=== PATIENT | female | born 1980 | race Caucasian/White ===

== ENCOUNTER 2017-11-14 10:28 | Emergency (ER) | payer MEDICARE ==
[2017-11-14] MEDS ORDERED: LORAZEPAM 1 MG TABLET PO ONE (10:51)
--- NOTE | 2017-11-14 10:55 | ER Document Report ---
ED Medical Screen (RME) - General Chief Complaint: Abdominal Pain Stated Complaint: NAUSEA, ABDOMINAL PAIN Time Seen by Provider: 11/14/17 10:51 Notes: 37 years old female who moved from [place] 1 week ago, multiple medical problems presents today with general malaise fatigue and nervous. Feeling nauseous no vomiting. Denies any diarrhea dysuria but had multiple frequencies. On examination she appears very nervous. Anxious. TRAVEL OUTSIDE OF THE [place] IN LAST 30 DAYS: No Past Medical History Renal/ Medical History: Denies: Hx Peritoneal Dialysis Physical Exam - Vital signs Vitals: Temp Pulse Resp BP Pulse Ox 97.7 F 71 16 136/99 H 98 11/14/17 10:38 11/14/17 10:38 11/14/17 10:38 11/14/17 10:38 11/14/17 10:38 Course - Vital Signs Vital signs: Temp Pulse Resp BP Pulse Ox 97.7 F 71 16 136/99 H 98 11/14/17 10:38 11/14/17 10:38 11/14/17 10:38 11/14/17 10:38 11/14/17 10:38
[2017-11-14 11:45] LABS: ABSOLUTE BASOPHILS # (AUTO) 0.1 10^3/uL (0.0-0.2); ABSOLUTE EOSINOPHILS # (AUTO) 0.1 10^3/uL (0.0-0.6); ABSOLUTE LYMPHOCYTES (AUTO) 2.6 10^3/uL (0.5-4.7); ABSOLUTE MONOCYTES (AUTO) 0.4 10^3/uL (0.1-1.4); ABSOLUTE NEUT (AUTO) 4.7 10^3/uL (1.7-8.2); BASOPHILS % (AUTO) 0.8 % (0-2); EOSINOPHILS % (AUTO) 0.9 % (0-6); HEMATOCRIT 42.9 % (36.0-47.0); HEMOGLOBIN 14.4 g/dL (12.0-15.5); LYMPHOCYTES % (AUTO) 33.1 % (13-45); MEAN CORPUSCULAR HEMOGLOBIN 28.4 pg (27.0-33.4); MEAN CORPUSCULAR HGB CONC 33.4 g/dL (32.0-36.0); MEAN CORPUSCULAR VOLUME 85 fl (80-97); MONOCYTES % (AUTO) 4.8 % (3-13); PLATELET COUNT 264 10^3/uL (150-450); RED BLOOD COUNT 5.05 10^6/uL (3.72-5.28); RED CELL DISTRIBUTION WIDTH 13.1 % (11.5-14.0); SEGMENTED NEUTROPHILS % (AUTO) 60.4 % (42-78); TOTAL CELLS COUNTED % (AUTO) 100 %; WHITE BLOOD COUNT 7.7 10^3/uL (4.0-10.5)
[2017-11-14 12:10] LABS: ALANINE AMINOTRANSFERASE 26 U/L (9-52); ALBUMIN 3.8 g/dL (3.5-5.0); ALKALINE PHOSPHATASE 53 U/L (38-126); ANION GAP 11 (5-19); ASPARTATE AMINO TRANSFERASE 23 U/L (14-36); BILIRUBIN,DIRECT 0.2 mg/dL (0.0-0.4); BILIRUBIN,TOTAL 0.4 mg/dL (0.2-1.3); BLOOD UREA NITROGEN 10 mg/dL (7-20); CALCIUM 9.2 mg/dL (8.4-10.2); CARBON DIOXIDE 26 mmol/L (22-30); CHLORIDE 107 mmol/L (98-107); GLUCOSE 90 mg/dL (75-110); POTASSIUM 4.4 mmol/L (3.6-5.0); SODIUM 144.3 mmol/L (137-145); TOTAL PROTEIN 6.9 g/dL (6.3-8.2)
[2017-11-14 12:12] LABS: APPEARANCE,URINE SLIGHTLY-CLOUDY; BILIRUBIN,URINE NEGATIVE (NEGATIVE); GLUCOSE, URINE NEGATIVE (NEGATIVE); KETONES,URINE NEGATIVE (NEGATIVE); LEUKOCYTE ESTERASE,URINE LARGE (NEGATIVE); NITRITE,URINE NEGATIVE (NEGATIVE); PROTEIN,URINE NEGATIVE (NEGATIVE); URINE SPECIFIC GRAVITY 1.024; UROBILINOGEN,URINE NEGATIVE mg/dL (<2.0)
--- NOTE | 2017-11-14 12:13 | ER Document Report ---
ED General - General Chief Complaint: Abdominal Pain Stated Complaint: NAUSEA, ABDOMINAL PAIN Time Seen by Provider: 11/14/17 10:51 Mode of Arrival: Ambulatory Information source: Patient Notes: Patient presents complaining of fatigue and not feeling well for the past week since relocating here from [place]. Patient states that she feels as though the heat is getting to her. Patient does complain of nausea but denies any vomiting or diarrhea. Patient does report some dysuria as well as frequency. Patient states she has had night sweats for the past 2 months. Patient denies any cough or cold symptoms. Patient denies any chest pain. Patient denies any pain complaints. TRAVEL OUTSIDE OF THE [place] IN LAST 30 DAYS: No - HPI Onset: Other - Night sweats 2 months, fatigue 1 week Onset/Duration: Persistent Quality of pain: No pain Pain Level: Denies Associated symptoms: Nausea, Other - Fatigue, urinary symptoms. denies: Chest pain, Nonproductive cough, Productive cough, Diarrhea, Fever, Vomiting Exacerbated by: Denies Relieved by: Denies Similar symptoms previously: No Recently seen / treated by doctor: No - Related Data Allergies/Adverse Reactions: divalproex sodium [From Depakote] Allergy (Verified 11/14/17 12:17) latex Allergy (Verified 11/14/17 12:17) Past Medical History - General Information source: Patient - Social History Smoking Status: Never Smoker Chew tobacco use (# tins/day): No Frequency of alcohol use: None Drug Abuse: None Occupation: None Lives with: Family Family History: Reviewed & Not Pertinent Patient has suicidal ideation: No Patient has homicidal ideation: No - Past Medical History Cardiac Medical History: Reports: Hx Hypertension Pulmonary Medical History: Reports: Hx Asthma Renal/ Medical History: Denies: Hx Peritoneal Dialysis GI Medical History: Reports: Hx Gastroesophageal Reflux Disease Psychiatric Medical History: Reports: Hx Anxiety, Hx Post Traumatic Stress Disorder, Other - Spastic dysphonia, essential tremor Past Surgical History: Reports: Hx Cholecystectomy Review of Systems - Review of Systems Constitutional: Diaphoresis - At nighttime, Malaise. denies: Chills, Fever, Weakness, Recent illness EENT: No symptoms reported Cardiovascular: No symptoms reported. denies: Chest pain, Dizziness Respiratory: No symptoms reported. denies: Cough, Short of breath Gastrointestinal: Nausea. denies: Abdominal pain, Diarrhea, Vomiting Genitourinary: Dysuria, Frequency Female Genitourinary: No symptoms reported. denies: Musculoskeletal: No symptoms reported. denies: Back pain Skin: No symptoms reported Hematologic/Lymphatic: No symptoms reported Neurological/Psychological: Tremor Physical Exam - Vital signs Vitals: Temp Pulse Resp BP Pulse Ox 97.7 F 71 16 136/99 H 98 11/14/17 10:38 11/14/17 10:38 11/14/17 10:38 11/14/17 10:38 11/14/17 10:38 - General General appearance: Appears well, Alert, Anxious In distress: None Notes: Patient with essential tremor and dysphonia when speaking - HEENT Head: Normocephalic, Atraumatic Eyes: Normal Conjunctiva: Normal Nasal: Normal Mouth/Lips: Normal Pharynx: Normal Neck: Normal, Supple. No: Lymphadenopathy - Respiratory Respiratory status: No respiratory distress Chest status: Nontender Breath sounds: Normal. No: Rales, Rhonchi, Stridor, Wheezing Chest palpation: Normal - Cardiovascular Rhythm: Regular Heart sounds: S1 appreciated, S2 appreciated Murmur: No - Back Back: Normal, Nontender. No: CVA tenderness - Extremities General upper extremity: Normal inspection, Nontender, Normal strength General lower extremity: Normal inspection, Nontender, Normal strength - Neurological Neuro grossly intact: Yes Cognition: Normal Palmer Coma Scale Eye Opening: Spontaneous Palmer Coma Scale Verbal: Oriented Apex Coma Scale Motor: Obeys Commands Apex Coma Scale Total: 15 - Psychological Associated symptoms: Anxious - Skin Skin Temperature: Warm Skin Moisture: Dry Skin Color: Normal Course - Re-evaluation Re-evalutation: 11/14/17 12:[address] Crisostomo regarding patient presentation and diagnostic evaluation, patient without any risk factors for TB. Advises basic labs including blood culture and urinalysis. 11/14/17 14:28 She complains of some nausea, additional medication ordered. Discussed results of patient's diagnostic tests with her. Patient encouraged to follow-up with her primary doctor for recheck. Will treat patient's UTI. No concern for pyelonephritis. Patient without fever or leukocytosis. Patient does endorse dysuria as well as frequency. - Vital Signs Vital signs: Temp Pulse Resp BP Pulse Ox 98.2 F 74 14 130/75 H 100 11/14/17 14:33 11/14/17 14:33 11/14/17 14:33 11/14/17 14:33 11/14/17 14:33 - Laboratory Result Diagrams: 11/14/17 11:08 11/14/17 11:08 Laboratory results interpreted by me: 11/14/17 11:08 Ur Leukocyte Esterase LARGE H Urine Ascorbic Acid 40 H Labs- Entire Visit 11/14/17 11/14/17 11/14/17 11:08 11:08 11:08 WBC 7.7 RBC 5.05 Hgb 14.4 Hct 42.9 MCV 85 MCH 28.4 MCHC 33.4 RDW 13.1 Plt Count 264 Seg Neutrophils % 60.4 Lymphocytes % 33.1 Monocytes % 4.8 Eosinophils % 0.9 Basophils % 0.8 Absolute Neutrophils 4.7 Absolute Lymphocytes 2.6 Absolute Monocytes 0.4 Absolute Eosinophils 0.1 Absolute Basophils 0.1 Sodium 144.3 Potassium 4.4 Chloride 107 Carbon Dioxide 26 Anion Gap 11 BUN 10 Creatinine 1.01 Est GFR ( Amer) > 60 Est GFR (Non-Af Amer) > 60 Glucose 90 Calcium 9.2 Total Bilirubin 0.4 Direct Bilirubin 0.2 Neonat Total Bilirubin Not Reportable Neonat Direct Bilirubin Not Reportable Neonat Indirect Bili Not Reportable AST 23 ALT 26 Alkaline Phosphatase 53 Total Protein 6.9 Albumin 3.8 TSH Urine Color YELLOW Urine Appearance SLIGHTLY-CLOUDY Urine pH 6.0 Ur Specific [place] 1.024 Urine Protein NEGATIVE Urine Glucose (UA) NEGATIVE Urine Ketones NEGATIVE Urine Blood NEGATIVE Urine Nitrite NEGATIVE Urine Bilirubin NEGATIVE Urine Urobilinogen NEGATIVE Ur Leukocyte Esterase LARGE H Urine WBC (Auto) 28 Urine RBC (Auto) 4 Urine Bacteria (Auto) 3+ Squamous Epi Cells Auto 25 Urine Mucus (Auto) MOD Urine Ascorbic Acid 40 H 11/14/17 11:08 WBC RBC Hgb Hct MCV MCH MCHC RDW Plt Count Seg Neutrophils % Lymphocytes % Monocytes % Eosinophils % Basophils % Absolute Neutrophils Absolute Lymphocytes Absolute Monocytes Absolute Eosinophils Absolute Basophils Sodium Potassium Chloride Carbon Dioxide Anion Gap BUN Creatinine Est GFR ( Amer) Est GFR (Non-Af Amer) Glucose Calcium Total Bilirubin Direct Bilirubin Neonat Total Bilirubin Neonat Direct Bilirubin Neonat Indirect Bili AST ALT Alkaline Phosphatase Total Protein Albumin TSH 1.97 Urine Color Urine Appearance Urine pH Ur Specific [place] Urine Protein Urine Glucose (UA) Urine Ketones Urine Blood Urine Nitrite Urine Bilirubin Urine Urobilinogen Ur Leukocyte Esterase Urine WBC (Auto) Urine RBC (Auto) Urine Bacteria (Auto) Squamous Epi Cells Auto Urine Mucus (Auto) Urine Ascorbic Acid Discharge - Discharge Clinical Impression: Nausea Fatigue Qualifiers: Fatigue type: unspecified Qualified Code(s): R53.83 - Other fatigue UTI (urinary tract infection) Qualifiers: Urinary tract infection type: site unspecified Hematuria presence: without hematuria Qualified Code(s): N39.0 - Urinary tract infection, site not specified Condition: Good Disposition: HOME, SELF-CARE Instructions: Cephalexin ([facility]), Fatigue ([facility]), Nausea or Vomiting, Nonspecific ([facility]), Urinary Anesthetic Agent ([facility]), Urinary Tract Infection ([facility]) Additional Instructions: Return immediately for any new or worsening symptoms Followup with your primary care provider, call tomorrow to make a followup appointment Urine culture is pending, we will call if you need any different treatment Prescriptions: Cephalexin Monohydrate [Keflex 500 mg Capsule] 500 mg PO Q6H 7 Days capsule Ondansetron HCl [Zofran 4 mg Tablet] 1 - 2 tab PO Q6 PRN #15 tablet PRN Reason: Phenazopyridine HCl [Pyridium 200 mg Tablet] 200 mg PO TID #15 tablet Referrals: RUBI VINCENT MD [ACTIVE STAFF] - 11/17/17
[2017-11-14 12:14] LABS: COLOR,URINE YELLOW
[2017-11-14] MEDS ORDERED: CEPHALEXIN 500 MG CAPSULE PO ONE (14:28)
[2017-11-14] MEDS ORDERED: ONDANSETRON 4 MG TAB.RAPDIS PO ONE (14:28)
[2017-11-14 14:53] VITALS: BP 130/75
== END 2017-11-14 14:31 | disposition home or self-care (01) ==
LOC: ER 10:28
DX: N39.0 Urinary tract infection, site not specified (principal); R53.83 Other fatigue; R11.0 Nausea; R30.0 Dysuria; G25.0 Essential tremor; R49.0 Dysphonia; R35.0 Frequency of micturition; R61 Generalized hyperhidrosis; J45.909 Unspecified asthma, uncomplicated; I10 Essential (primary) hypertension; R53.81 Other malaise; Z88.8 Allergy status to other drugs, medicaments and biological substances; Z91.040 Latex allergy status
CPT/HCPCS: 99284; 36415; 87040; 87086; 84443; 85025; 80053; 81001; A9270 ×3; S0119

== ENCOUNTER 2017-12-01 04:21 | Emergency (ER) | payer MEDICAID, MEDICARE ==
[2017-12-01] MEDS ORDERED: NORMAL SALINE 1000 ML 500 ML IV ONE (05:21)
--- NOTE | 2017-12-01 05:27 | ER Document Report ---
ED Allergic Reaction - General Chief Complaint: Allergic Reaction Stated Complaint: POSSIBLE RASH Time Seen by Provider: 12/01/17 04:59 Information source: Patient Notes: Patient is a 37-year-old female presenting to the emergency department for allergic reaction. Patient stated this evening she used a new shampoo which she is unsure of the name of, and also placed iodine on her hemorrhoids. Patient states they are the only new environmental contacts she can recall. Patient states an anaphylactic reaction to latex, bananas, Depakote, which she has had to use her EpiPen in the past for. Patient cannot recall the last time she used her EpiPen, stating it was a few years ago. Patient stated her tongue felt itchy, her lips were swollen, and her eyes were red and swollen. Patient denies hives or any type of rash on her body. Patient took 50 mg of Benadryl p.o. 40 mg of Pepcid p.o. and gave herself her EpiPen at home prior to calling 911. Upon EMS arrival they gave her 50 mg Benadryl IVP, 125 mg Solu-Medrol IVP. Patient currently states the redness, swelling, itchiness in her tongue and lips has since resolved. Patient also denies any redness or swelling around her eyes. Patient denies any repeat doses of epi for last anaphylactic reaction. Patient is currently denying any shortness of breath, chest pain, nausea, vomiting, or URI symptoms. TRAVEL OUTSIDE OF THE [place] IN LAST 30 DAYS: No - Related Data Allergies/Adverse Reactions: amphetamine [From Adderall] Allergy (Verified 12/01/17 04:48) asenapine [From Saphris] Allergy (Verified 12/01/17 04:48) azithromycin Allergy (Verified 12/01/17 04:48) bacitracin Allergy (Verified 12/01/17 04:48) banana Allergy (Verified 12/01/17 04:48) benzoin Allergy (Verified 12/01/17 04:48) cephalexin [From Keflex] Allergy (Verified 12/01/17 04:48) cetirizine [From Zyrtec] Allergy (Verified 12/01/17 04:48) ciprofloxacin [From Cipro] Allergy (Verified 12/01/17 04:48) clarithromycin [From Biaxin] Allergy (Verified 12/01/17 04:48) clindamycin Allergy (Verified 12/01/17 04:48) dextroamphetamine [From Adderall] Allergy (Verified 12/01/17 04:48) divalproex sodium [From Depakote] Allergy (Verified 12/01/17 04:48) doxycycline Allergy (Verified 12/01/17 04:48) fluocinonide [From Lidex] Allergy (Verified 12/01/17 04:48) gentamicin Allergy (Verified 12/01/17 04:48) lamotrigine [From Lamictal] Allergy (Verified 12/01/17 04:48) latex Allergy (Verified 12/01/17 04:48) lidocaine Allergy (Verified 12/01/17 04:48) milk Allergy (Verified 12/01/17 04:48) neomycin [From Neosporin ([id number])] Allergy (Verified 12/01/17 04:48) polymyxin B [From Neosporin ([id number])] Allergy (Verified 12/01/17 04:48) procaine [From Novocain] Allergy (Verified 12/01/17 04:48) promethazine [From Phenergan] Allergy (Verified 12/01/17 04:48) ropinirole [From Requip] Allergy (Verified 12/01/17 04:48) Past Medical History - General Information source: Patient - Social History Smoking Status: Never Smoker Frequency of alcohol use: None Drug Abuse: None Family History: Reviewed & Not Pertinent Patient has suicidal ideation: No Patient has homicidal ideation: No - Past Medical History Cardiac Medical History: Reports: Hx Hypertension Pulmonary Medical History: Reports: Hx Asthma Renal/ Medical History: Denies: Hx Peritoneal Dialysis GI Medical History: Reports: Hx Gastroesophageal Reflux Disease Psychiatric Medical History: Reports: Hx Anxiety, Hx Post Traumatic Stress Disorder Past Surgical History: Reports: Hx Section, Hx Cholecystectomy, Hx Orthopedic Surgery - left knee Review of Systems - Review of Systems Constitutional: No symptoms reported EENT: No symptoms reported Cardiovascular: See HPI Respiratory: See HPI Gastrointestinal: See HPI Genitourinary: No symptoms reported Female Genitourinary: No symptoms reported Musculoskeletal: No symptoms reported Skin: See HPI Hematologic/Lymphatic: No symptoms reported Neurological/Psychological: No symptoms reported Physical Exam - Vital signs Vitals: Temp Pulse Resp BP Pulse Ox 98.4 F 77 18 157/105 H 100 12/01/17 04:22 12/01/17 04:22 12/01/17 04:22 12/01/17 04:22 12/01/17 04:22 - Notes Notes: GENERAL: Alert, interacts well. No acute distress. HEAD: Normocephalic, atraumatic. EYES: Pupils equal, round, and reactive to light. Extraocular movements intact. No redness or swelling periorbital. ENT: Oral mucosa moist, tongue midline, and does not appear swollen. Pharynx within normal limits. NECK: Full range of motion. Supple. Trachea midline. LUNGS: Clear to auscultation bilaterally, no wheezes, rales, or rhonchi. No respiratory distress. HEART: Regular rate and rhythm. No murmur ABDOMEN: Soft, non-tender. Non-distended. Bowel sounds present in all 4 quadrants. EXTREMITIES: Moves all 4 extremities spontaneously. No edema, normal radial and dorsalis pedis pulses bilaterally. No cyanosis. BACK: no cervical, thoracic, lumbar midline tenderness. No saddle anesthesia, normal distal neurovascular exam. NEUROLOGICAL: Alert and oriented x3. Normal speech. PSYCH: Normal affect, normal mood. SKIN: Warm, dry, normal turgor. No rashes or lesions noted. Course - Re-evaluation Re-evalutation: Upon re-evaluation and exam she does not have any tongue itching, throat swelling, eye redness or itching. Patient continues to deny shortness of breath , chest pain, nausea, vomiting, diarrhea. Patient states she has multiple refills of her epinephrine pen at home due to previous anaphylactic reactions. Patient has been monitored in the emergency department 3 hours since EpiPen injection with no adverse reactions. - Vital Signs Vital signs: Temp Pulse Resp BP Pulse Ox 98.4 F 77 20 138/104 H 97 12/01/17 04:22 12/01/17 04:22 12/01/17 05:30 12/01/17 05:30 12/01/17 05:30 Discharge - Discharge Clinical Impression: Allergic reaction Qualifiers: Encounter type: initial encounter Qualified Code(s): T78.40XA - Allergy, unspecified, initial encounter Condition: Stable Disposition: HOME, SELF-CARE Instructions: Acute Allergic Reaction ([facility]) Additional Instructions: You have been seen in the emergency department for an allergic reaction. Should you develop signs and symptoms of tongue itching , throat swelling, chest pain, shortness of breath follow instructions on EpiPen as prescribed and return to the emergency department.
[2017-12-01 06:48] VITALS: BP 129/82
== END 2017-12-01 06:53 | disposition home or self-care (01) ==
LOC: ER 04:21
DX: T78.40XA Allergy, unspecified, initial encounter (principal); R21 Rash and other nonspecific skin eruption; R22.0 Localized swelling, mass and lump, head; I10 Essential (primary) hypertension; J45.909 Unspecified asthma, uncomplicated
CPT/HCPCS: 99283; J7030